=== PATIENT | male | born 1935 | race Caucasian/White ===

== ENCOUNTER 2024-07-20 15:36 | Outpatient (REF) | payer MEDICARE, SELFPAY ==
[2024-07-20 16:33] LABS: Basophils Absolute Auto 0.02 K/uL (0.00-0.30); Basophils Percent Auto 0.2 % (0.0-3.0); Eosinophils Absolute Auto 0.03 K/uL (0.00-0.50); Eosinophils Percent Auto 0.3 % (0.0-7.0); Hematocrit 39.2 % (37.0-53.0); Hemoglobin* 12.6 gm/dL (13.5-17.5); Immature Granulocytes Abs Auto 0.02 K/uL (0.00-0.30); Immature Granulocytes Pct Auto 0.2 %; Lymphocytes Percent Auto 3.7 % (20-44); Mean Corpuscular HGB Conc 32 gm/dL (32-36); Mean Corpuscular Hemoglobin 32 pg (26-34); Mean Corpuscular Volume 99 fL (80-100); Monocytes Percent Auto 3.8 % (0.0-11.0); Neutrophils Percent Auto 91.8 % (42.0-72.0); Platelet Count* 221 K/uL (140-440); RDW Coefficient of Variation % 14.4 % (11.5-15.5); Red Blood Count 3.95 m/uL (4.30-5.90); White Blood Count* 8.61 K/uL (4.50-11.00)
[2024-07-20 16:34] LABS: Slide Review Reflex No
[2024-07-20 17:03] LABS: Chloride* 103 mmol/L (96-114); Potassium* 3.8 mmol/L (3.6-5.1); Sodium* 138 mmol/L (135-149)
[2024-07-20 17:06] LABS: Blood Urea Nitrogen* 24 mg/dL (7-30); Creatinine* 0.9 mg/dL (0.5-1.5); Estimated Glomerular Filt Rate 82 ml/min
[2024-07-20 17:07] LABS: Anion Gap 10 mEq/L (7-15); Calcium* 8.6 mg/dL (8.4-10.6); Carbon Dioxide* 25 mmol/L (20-32); Glucose* 113 mg/dL (60-115)
== END 2024-07-20 15:37 | disposition home or self-care (01) ==
LOC: NPINS 15:36
PROVIDERS: PCP Nurse Practitioner Gerontology; Visit Provider Nurse Practitioner Gerontology
DX: R11.2 Nausea with vomiting, unspecified (principal)
CPT/HCPCS: 80048; 85025

== ENCOUNTER 2024-08-09 09:54 | Outpatient (CLI) | payer MEDICARE, SELFPAY ==
--- NOTE | 2024-08-09 10:15 | CRLHL7_ITS ---
For Patients: As a result of the Cures Act, medical imaging exams and procedure reports are released immediately into your electronic medical record. You may view this report before your referring provider. If you have questions, please contact your health care provider. For Patients: As a result of the Cures Act, medical imaging exams and procedure reports are released immediately into your electronic medical record. You may view this report before your referring provider. If you have questions, please contact your health care provider. CLINICAL HISTORY:Assess swallow for aspiration. TECHNIQUE:Fluoroscopy was provided for speech pathologist during video swallow study. Please see additional report for full details and recommendations. 57 seconds of fluoroscopy time was utilized. FINDINGS:Patient was given barium of varying consistencies to ingest. There was no laryngeal penetration or aspiration during ingestion of thin barium liquids. There was no laryngeal penetration or aspiration during ingestion of pudding + cracker. Normal RVS study. Dictated by Tristan Collazo MD @ 08/09/2024 10:54:34 AM (Electronically Signed)
== END 2024-08-09 09:55 | disposition home or self-care (01) ==
LOC: RAD 09:58
PROVIDERS: PCP Nurse Practitioner Gerontology; Visit Provider Nurse Practitioner Gerontology
DX: I63.9 Cerebral infarction, unspecified (principal)
CPT/HCPCS: 74230; 92611